=== PATIENT | male | born 1995 | race Caucasian/White ===

== ENCOUNTER 2016-10-04 02:41 | Emergency (ER) | payer SELFPAY ==
--- NOTE | 2016-10-04 02:53 | ER Document Report ---
ED Medical Screen (RME) - General Chief Complaint: Testicular Pain Stated Complaint: TESTICULAR PAIN Mode of Arrival: Ambulatory Information source: Patient Notes: Patient reports to the emergency department with complaints of testicular pain and swelling for the past 2 weeks. Reports he came in tonight because his parents reporting him. Reports the pain 2/5 denies taking anything for the pain. Reports the pain and swelling started approximately 2 weeks ago when he was child and sat of chronic. No other complaints such as penile discharge pain with void difficulty voiding. TRAVEL OUTSIDE OF THE [place] IN LAST 30 DAYS: No - Related Data Allergies/Adverse Reactions: No Known Allergies Allergy (Unverified 10/04/16 02:51) Past Medical History Renal/ Medical History: Denies: Hx Peritoneal Dialysis
--- NOTE | 2016-10-04 04:23 | ER Document Report ---
ED General - General Chief Complaint: Testicular Pain Stated Complaint: TESTICULAR PAIN Mode of Arrival: Ambulatory Notes: Patient presents emergency department with complaints of right testicular pain. Patient reports approximately 2 weeks ago he was startled and sat up quickly and felt a pop in his inguinal area. Patient reports he had pain in his hip after that time and 2 days later his abdominal muscles felt sore. Approximately one week ago his right testicle was sore and was swelling. He denies other symptoms such as fever vomiting diarrhea. He denies pain with void. He denies penile discharge. He reports no problems obtaining an erection. Denies pmh of injury to the area. TRAVEL OUTSIDE OF THE [place] IN LAST 30 DAYS: No - HPI Onset: Other - 2 weeks Onset/Duration: Persistent Quality of pain: Other - sore Severity: Mild Pain Level: 2 Associated symptoms: None Exacerbated by: Denies Relieved by: Denies Similar symptoms previously: No Recently seen / treated by doctor: No - Related Data Allergies/Adverse Reactions: No Known Allergies Allergy (Unverified 10/04/16 02:51) Past Medical History - General Information source: Patient - Social History Smoking Status: Unknown if Ever Smoked Cigarette use (# per day): No Frequency of alcohol use: None Drug Abuse: None Lives with: Family Family History: None Patient has suicidal ideation: No Patient has homicidal ideation: No - Medical History Medical History: Negative Renal/ Medical History: Denies: Hx Peritoneal Dialysis Surgical Hx: Negative Review of Systems - Review of Systems Notes: Review HPI for review of systems., All other systems negative Physical Exam - Vital signs Vitals: Temp Pulse Resp BP Pulse Ox 98.2 F 56 L 20 152/99 H 99 10/04/16 02:47 10/04/16 02:47 10/04/16 02:47 10/04/16 02:47 10/04/16 02:47 - Notes Notes: PHYSICAL EXAMINATION: GENERAL: Well-appearing and in no acute distress nontoxic looking HEAD: Atraumatic, normocephalic. EYES: extraocular movements intact, sclera anicteric, conjunctiva are normal. ENT: nares patent, . Moist mucous membranes. NECK: Normal range of motion, supple LUNGS: RR even/unlabored, no distress, speaks in clear voice HEART: Regular rate ABDOMEN: Soft, no tenderness. No guarding, no rebound EXTREMITIES: Normal range of motion, no pitting edema. No cyanosis. NEUROLOGICAL: Cranial nerves grossly intact. Normal sensory/motor PSYCH: Normal mood, normal affect. SKIN: Warm, Dry, normal turgor, no rashes or lesions noted - Genitourinary Tenderness: Nontender Scrotum: Normal - right testicle smaller than left. No: Swelling, Redness, Hot to touch Course - Re-evaluation Re-evalutation: 10/04/16 04:45 Normal testicular ultrasound no complaints of pain with void denies penile discharge patient will be discharged home instructed follow-up with his primary care provider. - Vital Signs Vital signs: Temp Pulse Resp BP Pulse Ox 98.2 F 84 16 144/86 H 97 10/04/16 02:47 10/04/16 04:51 10/04/16 04:51 10/04/16 04:51 10/04/16 04:51 - Diagnostic Test Radiology reviewed: Image reviewed, Reports reviewed - EXAM DESCRIPTION: U/S SCROTUM W/DOPPLER COMPLETED DATE/TIME: 10/04/2016 4:19 am REASON FOR STUDY: swelling, pain COMPARISON: None. TECHNIQUE: Static and realtime nowak scale imaging of the scrotum and testes. Selected color Doppler and spectral images recorded to document blood flow. LIMITATIONS: None. FINDINGS: RIGHT: TESTICLE: Normal size. Normal echotexture. Normal blood flow. No mass. EPIDIDYMIS: 4.6 mm epididymal cyst is identified. HYDROCELE OR VARICOCELE: No. HERNIA OR EXTRA-TESTICULAR MASS: No. OTHER: No other significant finding. LEFT: TESTICLE: Normal size. Normal echotexture. Normal blood flow. No mass. EPIDIDYMIS: Normal. HYDROCELE OR VARICOCELE: No. HERNIA OR EXTRA-TESTICULAR MASS: No. OTHER: No other significant finding. TECHNICAL DOCUMENTATION: JOB ID: [id number] [employer]- All Rights Reserved US/U/S SCROTUM W/DOPPLER IMPRESSION: NORMAL SCROTAL ULTRASOUND. NO EVIDENCE OF TESTICULAR MASS OR TORSION Discharge - Discharge Clinical Impression: Testicular pain, right, Elevated blood pressure reading Condition: Stable Disposition: HOME, SELF-CARE Additional Instructions: *You have been evaluated for right testicular pain *The ultrasound was normal *Follow up with a primary care provider within one week for recheck *Return to ED for worsening condition, changes, needs, concerns, worsening pain Monitor your blood pressure. Your blood pressure was elevated today. This may be because you were anxious, in pain or because you need medication. It is important to follow up with your primary care provider for full evaluation. Forms: Elevated Blood Pressure
[2016-10-04 04:53] VITALS: BP 144/86
== END 2016-10-04 04:53 | disposition home or self-care (01) ==
LOC: ER 02:41
DX: N50.811 Right testicular pain (principal); R03.0 Elevated blood-pressure reading, without diagnosis of hypertension
CPT/HCPCS: 76870; 93976; 99284